=== PATIENT | male | born 1965 | race Hispanic/Latino ===

== ENCOUNTER 2016-12-31 20:54 | Emergency (ER) | payer MEDICARE, MEDICAID ==
[2016-12-31 21:04] VITALS: BP 148/87; PULSE 81; RESP 16; TEMP 98.3; O2SAT 98
[2016-12-31] MEDS ORDERED: Sodium Chloride 0.9% 1,000 ML IV STA (22:29)
[2016-12-31 22:54] LABS: BASO % 0.1 % (0.0-2.0); EOS % 0.1 % (0.0-4.0); HEMOGLOBIN 13.9 g/dL (12.0-18.0); LYMPH # 2.9 K/uL (1.0-4.3); LYMPH % 25.2 % (20.0-40.0); MEAN CELL VOLUME 91.9 fl (80.0-94.0); MEAN CORPUSCULAR HGB CONC 33.7 g/dL (33.0-37.0); MEAN PLATELET VOLUME 8.9 fl (7.2-11.7); MONO # 0.9 K/uL (0.0-0.8); MONO % 7.9 % (0.0-10.0); NEUT # 7.6 K/uL (1.8-7.0); NEUT % 66.7 % (50.0-75.0); NRBC % 0.1 % (0.0-0.0); RBC 4.49 Mil/uL (4.40-5.90); RED CELL DISTRIBUTION WIDTH 13.6 % (11.5-14.5); WHITE BLOOD COUNT 11.4 K/uL (4.8-10.8)
[2016-12-31 23:00] LABS: ALB/GLOB RATIO 1.5 (1.0-2.1); ALBUMIN 4.3 g/dL (3.5-5.0); ALT/SGPT 39 U/L (21-72); AST/SGOT 20 U/L (17-59); BLOOD UREA NITROGEN 25 mg/dl (9-20); CALCIUM 9.5 mg/dL (8.4-10.2); GFR AFRICAN-AMERICAN > 60; GFR NON-AFRICAN AMERICAN > 60
--- NOTE | 2017-01-01 01:08 | ED PDOC ---
HPI: General Adult Time Seen by Provider: 12/31/16 21:16 Chief Complaint (Nursing): Lower Extremity Problem/Injury Chief Complaint (Provider): Right arm and right leg spasm History Per: Patient History/Exam Limitations: no limitations Onset/Duration Of Symptoms: Days Have you had recent travel within the past 21 days to any of the following countries: [place], [place], [place] or [place]?: No Additional Complaint(s): Pt states he had similar in the past when he was first diagnosed with MS. PT states he did not have insurance and was unable to Past Medical History Vital Signs: Last Vital Signs Temp 98.3 F 12/31/16 20:59 Pulse 81 12/31/16 20:59 Resp 16 12/31/16 20:59 BP 148/87 12/31/16 20:59 Pulse Ox 98 12/31/16 20:59 - Medical History PMH: HTN - Surgical History Surgical History: Coronary Stent - Immunization History Hx Tetanus Toxoid Vaccination: No Hx Influenza Vaccination: No Hx Pneumococcal Vaccination: No - Home Medications Home Medications: Ambulatory Orders Medication Instructions Recorded diaZEpam [Valium] 5 mg PO Q6H PRN #15 tab 01/01/17 - Allergies Allergies/Adverse Reactions: Allergies Allergy/AdvReac Type Severity Reaction Status Date / Time shellfish derived Allergy RASH Verified 12/31/16 21:07 - Laboratory Results Result Diagrams: 12/31/16 22:46 12/31/16 22:46 - ECG O2 Sat by Pulse Oximetry: 98 Disposition - Clinical Impression Clinical Impression: Muscle spasm, Multiple sclerosis - Patient ED Disposition Is Patient to be Admitted: No Counseled Patient/Family Regarding: Diagnosis, Need For Followup, Rx Given - Disposition Disposition: Routine/Home Disposition Time: 01:03 Condition: GOOD Prescriptions: diaZEpam [Valium] 5 mg PO Q6H PRN #15 tab PRN Reason: Pain Forms: [employer] ([place])
== END 2017-01-01 01:25 | disposition home or self-care (01) ==
LOC: H.ER 20:54
DX: G35 Multiple sclerosis (principal)
CPT/HCPCS: 80053; 85025; 85651; 96374; 99283; J2930; J7040